=== PATIENT | female | born 1980 | race Caucasian/White ===

== ENCOUNTER 2023-11-20 19:37 | Emergency (ER) | payer MEDICAID ==
[2023-11-20] MEDS: Bupivacaine 0.25% 10 ML SDV INJECT ONE (20:33)
[2023-11-20] MEDS: Lidocaine 1% 50 ML MDV INJECT ONE (20:33)
[2023-11-20] MEDS: Lidocaine 1% 10 ML MDV ONE (20:34)
[2023-11-20] MEDS: Bacitracin Oint 15 GM Tube ONE (23:25)
[2023-11-21] MEDS ORDERED: Bacitracin Oint 15 GM Tube TOP SCH (09:00)
== END 2023-11-20 23:27 | disposition home or self-care (01) ==
LOC: JD.ED 19:37
DX: S61.215A Laceration without foreign body of left ring finger without damage to nail, initial encounter (principal); W26.8XXA Contact with other sharp object(s), not elsewhere classified, initial encounter
CPT/HCPCS: 12002; 73130; 99284; A9270; J0665; J2001; 99283